=== PATIENT | female | born 1960 | race Caucasian/White ===

== ENCOUNTER 2018-11-23 16:57 | Emergency (ER) | payer BC ==
[2018-11-23 18:58] VITALS: BP 103/71
[2018-11-23 19:11] LABS: Influenza A Molecular POSITIVE (Negative)
--- NOTE | 2018-11-23 19:17 | UC ---
FLU HPI - HPI Summary HPI Summary: 58-year-old female presents with onset of general malaise, chills, nasal congestion, sinus congestion, postnasal drip, sore throat, and occasional dry nonproductive cough. States several coworkers have been diagnosed with influenza. Denies ear pain, dysphagia, chest pain, shortness of breath, abdominal pain, nausea, vomiting, or diarrhea. - History of Current Complaint Chief Complaint: UCGeneralIllness Stated Complaint: SINUSES, FEVER Time Seen by Provider: 11/23/18 18:53 Hx Obtained From: Patient Pain Intensity: 10 - Allergy/Home Medications Allergies/Adverse Reactions: Allergies Allergy/AdvReac Type Severity Reaction Status Date / Time No Known Allergies Allergy Verified 11/23/18 18:58 PMH/Surg Hx/FS Hx/Imm Hx Previously Healthy: Yes - Denies significant PMH - Surgical History Surgical History: None - Family History Known Family History: Positive: Non-Contributory - Social History Occupation: Employed Full-time Lives: With Family Alcohol Use: Daily Alcohol Amount: only on weekends Substance Use Type: None Smoking Status (MU): Never Smoked Tobacco - Immunization History Most Recent Influenza Vaccination: no Review of Systems All Other Systems Reviewed And Are Negative: Yes Constitutional: Positive: Chills, Fatigue Skin: Negative: Rash Eyes: Negative: Drainage, Eye Redness ENT: Positive: Sore Throat, Nasal Discharge, Sinus Congestion, Sinus Pain/ Tenderness. Negative: Ear Ache Respiratory: Positive: Cough. Negative: Shortness Of Breath Cardiovascular: Negative: Palpitations, Chest Pain Gastrointestinal: Negative: Abdominal Pain, Vomiting, Diarrhea, Nausea Genitourinary: Positive: Negative Musculoskeletal: Positive: Negative Neurological: Positive: Negative Is Patient Immunocompromised?: No Physical Exam - Summary Physical Exam Summary: GENERAL APPEARANCE: Well developed, well nourished, alert and cooperative, and appears to be in no acute distress. EYES: Conjunctiva clear. No drainage. Vision is grossly intact. EARS: External auditory canals and tympanic membranes clear, hearing grossly intact. NOSE: Mild-moderate nasal congestion. No nasal discharge. Mild maxillary sinus tenderness with percussion. THROAT: Mild pharyngeal without tonsilar inflammation, swelling, exudate, or lesions. Uvula midline. NECK: Neck supple, non-tender without lymphadenopathy. CARDIAC: Normal S1 and S2. No S3, S4 or murmurs. Rhythm is regular. There is no peripheral edema, cyanosis or pallor. Extremities are warm and well perfused. Capillary refill is less than 2 seconds. Peripheral pulses intact. LUNGS: Clear to auscultation without rales, rhonchi, wheezing or diminished breath sounds. Dry, non-productive cough. ABDOMEN: Positive bowel sounds. Soft, nondistended, nontender. No guarding or rebound. No masses or hepatosplenomegally. MUSKULOSKELETAL: ROM intact to all extremities. No joint erythema or tenderness. Normal muscular development. Normal gait. SKIN: Skin normal color, texture and turgor with no lesions or eruptions. Triage Information Reviewed: Yes Vital Signs: Initial Vital Signs Temp 99.7 F 11/23/18 18:55 Pulse 81 11/23/18 18:55 Resp 17 11/23/18 18:55 BP 103/71 11/23/18 18:55 Pulse Ox 97 11/23/18 18:55 Vital Signs Reviewed: Yes Flu Course/Dx - Course Course Of Treatment: 58-year-old female presents with onset of general malaise, chills, nasal congestion, sinus congestion, postnasal drip, sore throat, and occasional dry nonproductive cough. States several coworkers have been diagnosed with influenza. Denies ear pain, dysphagia, chest pain, shortness of breath, abdominal pain, nausea, vomiting, or diarrhea. Afebrile. Vital signs stable. Exam reveals an adult female in no acute distress with mild to moderate nasal congestion, mild pharyngeal erythema, no tonsillar swelling or exudate, no cervical lymphadenopathy, clear bilateral breath sounds, dry nonproductive cough, and otherwise unremarkable exam. Rapid flu was positive for influenza A. Discussed risks and benefits of of treating with Tamiflu and patient is electing not to start at this time. Recommending symptomatic treatment. She is to follow-up with her primary care provider in 7 days if symptoms do not improve. Anticipatory guidance and warning symptoms were reviewed with the patient. Verbalizes understanding and agrees with plan of care. - Differential Dx/Diagnosis Differential Diagnosis/HQI/PQRI: Bronchitis, Influenza, Pneumonia, Upper Respiratory Infection Provider Diagnosis: Influenza A Discharge - Sign-Out/Discharge Documenting (check all that apply): Patient Departure All imaging exams completed and their final reports reviewed: No Studies - Discharge Plan Condition: Stable Disposition: HOME Patient Education Materials: Influenza (ED) Referrals: Sakina Zhong MD [Primary Care Provider] - 7 Days (If no improvement in symptoms.) Additional Instructions: Your flu test in the clinic today was positive for influenza A. Get plenty of rest. Drink plenty of fluids to avoid dehydration especially if you are running any fever. Take over the counter acetaminophen (Tylenol) or ibuprofen (Advil, Motrin) according to directions as needed for pain or fever. May use an over the counter decongestant such as Sudafed for the congestion. Use salt water gargles several times a day if you have a sore throat. You may also use Chloraseptic spray or Cepacol lonzenges according to directions which contain a numbing medication and can provide some temporary relief from your sore throat. Follow up with your primary care provider in 7 days if symptoms persist. Seek immediate medical attention in the emergency room if you have fever greater than 100.5 F despite taking acetaminophen or ibuprofen, have chest pain , difficulty breathing, are unable to swallow, or have any worsening of symptom - Billing Disposition and Condition Condition: STABLE Disposition: Home - Attestation Statements Provider Attestation: I was available for consult. This patient was seen by the THEODORE. The patient was not presented to, seen by, or examined by me. EK
== END 2018-11-23 19:31 | disposition home or self-care (01) ==
LOC: UCCORT 16:57
DX: J10.1 Influenza due to other identified influenza virus with other respiratory manifestations (principal)
CPT/HCPCS: 99201; G0463